=== PATIENT | female | born 1980 | race Hispanic/Latino ===

== ENCOUNTER 2021-11-20 18:26 | Emergency (ER) | payer OTHER, SELFPAY ==
--- OUTSIDE RECORDS SUMMARY | 2021-11-20 18:31 | XMS REPORT | Continuity of Care Document ---
:1980 Author Organization [facility] t Address [address] [place] [id number] Care Team Providers Name Role Phone LEVI NEGRO Attending Clinician Unavailable Problems This patient has no known problems. Allergies, Adverse Reactions, Alerts This patient has no known allergies or adverse reactions. Medications This patient has no known medications. Procedures This patient has no known procedures. Results Test Description Test Time Test Comments Results Result [facility] e Comments CT, ABDOMEN 2018-11-15 Reason for FINAL REPORT PATIENT 18:22:00 exam:->ABDOMINA ID: [id number] L PAINIs the INDICATION:Abdominal patient pain COMPARISON: ?->Unkn None. TECHNIQUE: CT ownWhat is the of the Abdomen and patient's Pelvis WITH sedation intravenous contrast. requirement?->N Enteric contrast was o Sedation not used. The exam was performed according to our department dose-optimization protocol, which includes automated exposure control, adjustments of mA and kV according to patient size. Iterative reconstructions are also sometimes employed. FINDINGS:There is submucosal edema of the transverse colon likely representing infectious colitis. No associated pericolonic fat stranding. Stomach and small bowel are unremarkable. No peritoneal free fluid or free air is demonstrated. Diffuse low-attenuation of the liver parenchyma representing hepatic steatosis. Gallbladder is unremarkable. There is no biliary ductal dilatation. Pancreas, spleen, adrenal glands, kidneys, bladder are unremarkable. Adjacent to the right ovary is a thin-walled unilocular cyst measuring 1.5 cm. This is deemed benign and no imaging follow-up is recommended. Left ovary is unremarkable. Uterus unremarkable. Osseous structures unremarkable. Lower thorax unremarkable. IMPRESSION: Submucosal edema of the transverse colon representing colitis, likely infectious.Hepatic steatosis. Signed: Courtney Fischer MDReport Verified Date/Time: 11/15/2018 18:22:29 Reading Location: [facility] [id number] CT Body Reading Room ALYSIS W/ MICROSCOPIC 2018-11-15 16:39:00 Test Item Value Reference Range Interpretation Comme nts COLOR (BEAKER) (test code = 470) Light Yellow CLARITY (BEAKER) (test code = 469) Clear SPECIFIC GRAVITY UA (BEAKER) (test code = 468) 1.001 1.001-1 .035 PH UA (BEAKER) (test code = 467) 6.5 5.0-8.0 PROTEIN UA (BEAKER) (test code = 464) Negative Negative GLUCOSE UA (BEAKER) (test code = 365) Negative Negative KETONES UA (BEAKER) (test code = 371) Negative Negative BILIRUBIN UA (BEAKER) (test code = 462) Negative Negative BLOOD UA (BEAKER) (test code = 461) Moderate Negative A NITRITE UA (BEAKER) (test code = 465) Negative Negative LEUKOCYTE ESTERASE UA (BEAKER) (test code = 466) Negative Negat josie UROBILINOGEN UA (BEAKER) (test code = 463) 0.2 mg/dL 0.2-1.0 RBC UA (BEAKER) (test code = 519) 5 /HPF WBC UA (BEAKER) (test code = 520) 1 /HPF BACTERIA (BEAKER) (test code = 517) Rare SQUAMOUS EPITHELIAL (BEAKER) (test code = 516) < /HPF SOURCE(BEAKER) (test code = 2795) Urine, Clean Catch SCREEN, [id number] 16:38:00 Test Item Value Reference Range Interpretation Comments TEST URINE (BEAKER) (test Negative code = 583) BASIC METABOLIC [id number] 15:54:00 Test Item Value Reference Range Interpretation Comments SODIUM (BEAKER) 136 meq/L 136-145 (test code = 381) POTASSIUM (BEAKER) 3.4 meq/L 3.5-5.1 L (test code = 379) CHLORIDE (BEAKER) 103 meq/L 98-107 (test code = 382) CO2 (BEAKER) (test 25 meq/L 22-29 code = 355) BLOOD UREA NITROGEN 11 mg/dL 7-21 (BEAKER) (test code = 354) CREATININE (BEAKER) 0.76 mg/dL 0.57-1.25 (test code = 358) GLUCOSE RANDOM 100 mg/dL 70-105 (BEAKER) (test code = 652) CALCIUM (BEAKER) 9.6 mg/dL 8.4-10.2 (test code = 697) EGFR (BEAKER) (test mL/min/1.73 INSUFFIC IENT CLINICAL code = 1092) sq m DATA TO CALCULA TE ESTIMATED GFR. [id number] 15:48:00 Test Item Value Reference Range Interpretation Comments LIPASE (BEAKER) (test code = 749) 25 U/L 8-78 [id number] 15:48:00 Test Item Value Reference Range Interpretation Comments AMYLASE (BEAKER) (test code = 349) 68 U/L 25-125 HEPATIC FUNCTION [id number] 15:48:00 Test Item Value Reference Range Interpretation Comments TOTAL PROTEIN (BEAKER) (test code = 7.9 gm/dL 6.0-8.3 770) ALBUMIN (BEAKER) (test code = 1145) 4.7 g/dL 3.5-5.0 BILIRUBIN TOTAL (BEAKER) (test code 1.1 mg/dL 0.2-1.2 = 377) BILIRUBIN DIRECT (BEAKER) (test 0.3 mg/dL 0.1-0.5 code = 706) ALKALINE PHOSPHATASE (BEAKER) (test 53 U/L 40-150 code = 346) AST (SGOT) (BEAKER) (test code = 21 U/L 5-34 353) ALT (SGPT) (BEAKER) (test code = 14 U/L 6-55 347) [id number] 15:47:00 Test Item Value Reference Range Interpretation Comments PROTIME (BEAKER) (test code = 12.6 seconds 11.7-14.7 759) INR (BEAKER) (test code = 370) 0.9 <=5.9 PARTIAL THROMBOPLASTIN TIME 27.1 seconds 22.5-36.0 (BEAKER) (test code = 760) RECOMMENDED COUMADIN/WARFARIN INR THERAPY RANGESSTANDARD DOSE: 2.0 - 3.0 Includes: PROPHYLAXIS forvenous thrombosis, systemic embolization; TREATMENT for venous thrombosis and/or pulmonary embolus.HIGH RISK: Target INR is 2.5-3.5 for patients with mechanical heart valves.CBC W/PLT COUNT & AUTO DIFFERENTIAL 2018-11-15 15:34:00 Test Item Value Reference Range Interpretation Comments WHITE BLOOD CELL COUNT (BEAKER) 6.4 K/ L 3.5-10.5 (test code = 775) RED BLOOD CELL COUNT (BEAKER) 4.93 M/ L 3.93-5.22 (test code = 761) HEMOGLOBIN (BEAKER) (test code = 13.7 GM/DL 11.2-15.7 410) HEMATOCRIT (BEAKER) (test code = 41.4 % 34.1-44.9 411) MEAN CORPUSCULAR VOLUME (BEAKER) 84.0 fL 79.4-94.8 (test code = 753) MEAN CORPUSCULAR HEMOGLOBIN 27.8 pg 25.6-32.2 (BEAKER) (test code = 751) MEAN CORPUSCULAR HEMOGLOBIN CONC 33.1 GM/DL 32.2-35.5 (BEAKER) (test code = 752) RED CELL DISTRIBUTION WIDTH 14.5 % 11.7-14.4 H (BEAKER) (test code = 412) PLATELET COUNT (BEAKER) (test 228 K/CU MM 150-450 code = 756) MEAN PLATELET VOLUME (BEAKER) 9.7 fL 9.4-12.3 (test code = 754) NUCLEATED RED BLOOD CELLS 0 /100 WBC 0-0 (BEAKER) (test code = 413) NEUTROPHILS RELATIVE PERCENT 68 % (BEAKER) (test code = 429) LYMPHOCYTES RELATIVE PERCENT 25 % (BEAKER) (test code = 430) MONOCYTES RELATIVE PERCENT 5 % (BEAKER) (test code = 431) EOSINOPHILS RELATIVE PERCENT 1 % (BEAKER) (test code = 432) BASOPHILS RELATIVE PERCENT 0 % (BEAKER) (test code = 437) NEUTROPHILS ABSOLUTE COUNT 4.35 K/ L 1.56-6.13 (BEAKER) (test code = 670) LYMPHOCYTES ABSOLUTE COUNT 1.62 K/ L 1.18-3.74 (BEAKER) (test code = 414) MONOCYTES ABSOLUTE COUNT (BEAKER) 0.33 K/ L 0.24-0.36 (test code = 415) EOSINOPHILS ABSOLUTE COUNT 0.06 K/ L 0.04-0.36 (BEAKER) (test code = 416) BASOPHILS ABSOLUTE COUNT (BEAKER) 0.01 K/ L 0.01-0.08 (test code = 417) IMMATURE GRANULOCYTES-RELATIVE 0 % 0-1 PERCENT (RON) (test code = 2801)
[2021-11-20 19:29] LABS: Absolute Lymphocytes (CBC) 1.5 K/uL (0.7-4.9); Hematocrit 39.2 % (36.0-45.0); Lymphocytes % 32.2 % (15.3-44.8); MPV 8.1 fL (7.6-11.3); RBC Red Blood Cell Count 4.59 M/uL (3.86-4.86)
--- NOTE | 2021-11-20 20:29 | RAD REPORT ---
EXAM DESCRIPTION: RAD - Chest Single View - 11/20/2021 8:09 pm CLINICAL HISTORY: SOB COMPARISON: No comparisons FINDINGS: Lines: None. Lungs: No evidence of edema or pneumonia. Pleural: No significant pleural effusions or pneumothorax. Cardiac: The heart size is within normal limits. Bones: No acute fractures. Other: IMPRESSION: No acute cardiopulmonary disease.
[2021-11-20 21:44] LABS: ALT/SGPT 21 U/L (12-78); AST/SGOT 16 U/L (15-37); Albumin 4.1 g/dL (3.4-5.0); Alkaline Phosphatase 60 U/L (45-117); BUN Blood Urea Nitrogen 14 mg/dL (7-18); Bicarbonate 25 mmol/L (21-32); Bilirubin Direct < 0.1 mg/dL (0-0.2); Bilirubin Total 0.3 mg/dL (0.2-1.0); Glucose Level 98 mg/dL (74-106); NT PRO-BNP 46 pg/mL (<125); Protein, Total 7.7 g/dL (6.4-8.2); Sodium Level 138 mmol/L (136-145)
[2021-11-20] MEDS ORDERED: LIDOCAINE VISCOUS 2% SOLN 15 ML UDC ONE (22:06)
[2021-11-20] MEDS ORDERED: MAGNES/ALUMIN/SIMET 30ML UCUP ONE (22:06)
[2021-11-20 22:11] LABS: Magnesium 2.1
--- NOTE | 2021-11-20 22:22 | RAD REPORT ---
EXAM DESCRIPTION: CT - Soft Tissue Neck W/Contr CLINICAL HISTORY: sob, fb sensation COMPARISON: No comparisons TECHNIQUE All CT scans are performed using dose optimization technique as appropriate and may includ e automated exposure control or mA/KV adjustment according to patient size. FINDINGS: Nasopharyngeal tissues are normal in appearance. Fossa Rosenmller are normal. Parapharyngeal fat triangles are symmetric. Tongue base structures are normal. Epiglottis and aryepiglottic folds are normal. Piriform sinuses are well aerated. The vocal cords are normal in appearance. Salivary glands are normal in appearance. Upper lung boyle are clear. Included intracranial contents are unremarkable. IMPRESSION: Negative examination. No foreign body. Widely patent airway.
--- NOTE | 2021-11-20 22:32 | ER ---
Nurse's Notes [facility] Name: Linda Corona Age: 41 yrs Sex: Female : 1980 Arrival Date: 11/20/2021 Time: 18:30 Bed 17 Private MD: Diagnosis: Dyspnea;Dysphagia, unspecified Presentation: 11/20 18:33 Chief complaint: Patient states: she was sent by [facility]. She reports ap3 difficulty swallowing and a hoarse voice, and the clinic wanted her to be further evaluated. Coronavirus screen: At this time, the client does not indicate any symptoms associated with coronavirus-19. Ebola Screen: No symptoms or risks identified at this time. Initial Sepsis Screen: Does the patient meet any 2 criteria? No. Patient's initial sepsis screen is negative. Does the patient have a suspected source of infection? No. Patient's initial sepsis screen is negative. Risk Assessment: Do you want to hurt yourself or someone else? Patient reports no desire to harm self or others. Onset of symptoms was November 20, 2021. 18:33 Method Of Arrival: Ambulatory ap3 18:33 Acuity: HAMZAH 3 ap3 Triage Assessment: 18:36 General: Appears in no apparent distress. comfortable, Behavior is calm, cooperative, ap3 appropriate for age. Pain: Denies pain. EENT: Reports difficulty swallowing. Neuro: Level of Consciousness is awake, alert, obeys commands, Oriented to person, place, time, situation, Appropriate for age Speech is normal. Respiratory: Airway is patent Respiratory effort is even, unlabored, Respiratory pattern is regular, symmetrical. 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 - Social history:: Smoking status: Patient denies any tobacco usage or history of. Screenin:36 Abuse screen: Denies threats or abuse. Nutritional screening: No deficits noted. ap3 Tuberculosis screening: No symptoms or risk factors identified. 18:45 Fall Risk None identified. ab2 Assessment: 18:44 Reassessment:. General: Appears in no apparent distress. comfortable, Behavior is calm, ab2 cooperative, appropriate for age. Pain: Complains of pain in neck Pain does not radiate. Pain currently is 7 out of 10 on a pain scale. Quality of pain is described as burning. Neuro: Level of Consciousness is awake, alert, obeys commands, Oriented to person, place, time, situation, Appropriate for age Flake Or Shred Roll Operator are equal bilaterally Moves all extremities. Gait is steady, Speech is normal, Facial symmetry appears normal. Cardiovascular: No deficits noted. Denies chest pain, Heart tones S1 S2 present. Respiratory: Airway is patent Respiratory effort is even, unlabored, Respiratory pattern is regular, symmetrical, Breath sounds are clear bilaterally. GI: No deficits noted. No signs and/or symptoms were reported involving the gastrointestinal system. : No deficits noted. No signs and/or symptoms were reported regarding the genitourinary system. EENT: Reports pain when swallowing. Derm: No deficits noted. No signs and/or symptoms reported regarding the dermatologic system. Skin is intact, is healthy with good turgor. Musculoskeletal: No deficits noted. No signs and/or symptoms reported regarding the musculoskeletal system. Vital Signs: 18:33 BP 115 / 77; Pulse 71; Resp 18; Temp 98.1(TE); Pulse Ox 100% on R/A; Weight 65.77 kg; ap3 Height 4 ft. 11 in. (149.86 cm); 21:08 BP 121 / 79; Pulse 78; Resp 20; Pulse Ox 100% ; sf1 18:33 Body Mass Index 29.29 (65.77 kg, 149.86 cm) ap3 ED Course: 18:30 Patient arrived in ED. am2 18:35 Triage completed. ap3 18:37 Arm band placed on right wrist. ap3 18:39 Johnny Choi PA is PHCP. jmm 18:39 Carmelina Wagner MD is Attending Physician. [facility] 18:43 Ronald Castillo is Primary Nurse. ab2 18:45 Patient has correct armband on for positive identification. Bed in low position. Call ab2 light in reach. Side rails up X2. 18:45 No provider procedures requiring assistance completed. ab2 19:11 Inserted saline lock: 20 gauge in right antecubital area, using aseptic technique. sf1 Blood collected. 19:12 Basic Metabolic Panel Sent. sf1 19:13 CBC with Diff Sent. sf1 19:13 LFT's Sent. sf1 19:13 Magnesium Sent. sf1 19:13 NT PRO-BNP Sent. sf1 19:13 PT-INR Sent. sf1 19:13 Troponin HS Sent. sf1 19:13 Basic Metabolic Panel Sent. sf1 19:13 D-Dimer Sent. sf1 20:09 XRAY Chest (1 view) In Process Unspecified. EDMS 22:04 CT Soft Tissue Neck W/contr In Process Unspecified. EDMS 22:31 Henrique Troncoso MD is Referral Physician. [facility] 22:50 IV discontinued, intact, bleeding controlled, No redness/swelling at site. Pressure sf1 dressing applied. Administered Medications: 22:18 Drug: GI Cocktail without - (Maalox Suspension 30 ml, Lidocaine Liquid 2 % 15 sf1 ml) Route: PO; Outcome: 22:31 Discharge ordered by MD. [facility] 22:50 Discharged to home ambulatory. sf1 22:50 Condition: good 22:50 Discharge instructions given to patient, Instructed on discharge instructions, follow up and referral plans. Demonstrated understanding of instructions, follow-up care, medications, Prescriptions given X 1. 23:01 Patient left the ED. bb Signatures: Dispatcher [employer] EDMS Johnny Choi PA PA jmm Ballard, Brenda, RN RN Patricia Kamara Amanda, RN RN ap3 Ronald Castillo2 Tanya Schroeder RN RN sf1
--- NOTE | 2021-11-20 22:32 | EDPHYS ---
Physician Documentation [facility] Name: Linda Corona Age: 41 yrs Sex: Female : 1980 Arrival Date: 11/20/2021 Time: 18:30 Bed 17 Private MD: ED Physician Carmelina Wagner HPI: 11/20 19:01 This 41 yrs old Female presents to ER via Ambulatory with complaints of jmm Difficulty Swallowing, hoarse voice. 19:01 The patient presents with sore throat. Onset: The symptoms/episode began/occurred jmm gradually, 7 week(s) ago. Modifying factors: The symptoms are alleviated by nothing, the symptoms are aggravated by swallowing. Associated signs and symptoms: Pertinent positives: shortness of breath. Is a 41-year-old female no known chronic medical conditions presents emerged part with complaints of sore throat and dyspnea beginning approximately 7 weeks ago. Patient denies chest pain but states having some shortness of breath. Patient was sent from the [facility] to the ER due to concerns for foreign body. Patient denies vomiting. Denies fever.. 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 - Social history:: Smoking status: Patient denies any tobacco usage or history of. ROS: 19:01 Constitutional: Negative for fever, chills, and weight loss, Cardiovascular: Negative jmm for chest pain, palpitations, and edema. 19:01 ENT: Positive for sore throat. 19:01 Respiratory: Positive for shortness of breath. 19:01 All other systems are negative. Exam: 19:01 Constitutional: This is a well developed, well nourished patient who is awake, alert, jmm and in no acute distress. Head/Face: atraumatic. Eyes: EOMI, no conjunctival erythema appreciated 19:01 Neck: Trachea midline, Supple Chest/axilla: Normal chest wall appearance and motion. Cardiovascular: Regular rate and rhythm. No edema appreciated Respiratory: Normal respirations, no respiratory distress appreciated Abdomen/GI: Non distended, soft Back: Normal ROM Skin: General appearance color normal MS/ Extremity: Moves all extremities, no obvious deformities appreciated, no edema noted to the lower extremities Neuro: Awake and alert 19:01 ENT: Posterior pharynx: is normal. Vital Signs: 18:33 BP 115 / 77; Pulse 71; Resp 18; Temp 98.1(TE); Pulse Ox 100% on R/A; Weight 65.77 kg; ap3 Height 4 ft. 11 in. (149.86 cm); 21:08 BP 121 / 79; Pulse 78; Resp 20; Pulse Ox 100% ; sf1 18:33 Body Mass Index 29.29 (65.77 kg, 149.86 cm) ap3 MDM: 19:01 Patient medically screened. [facility] 22:30 Data reviewed: vital signs, nurses notes. Counseling: I had a detailed discussion with ruth the patient and/or guardian regarding: the historical points, exam findings, and any diagnostic results supporting the discharge/admit diagnosis, lab results, radiology results, the need for outpatient follow up, to return to the emergency department if symptoms worsen or persist or if there are any questions or concerns that arise at home. ED course: Patient is alert and nontoxic in appearance in the ED. Imaging studies are negative. Patient advised to follow with GI for further evaluation. Patient otherwise given strict return precautions. Patient understood agrees plan of care.. 11/20 19:02 Order name: Basic Metabolic Panel [facility] 11/20 19:02 Order name: CBC with Diff; Complete Time: 20:22 [facility] 11/20 19:02 Order name: LFT's; Complete Time: 22:14 [facility] 11/20 19:02 Order name: Magnesium; Complete Time: 22:14 [facility] 11/20 19:02 Order name: NT PRO-BNP; Complete Time: 22:14 [facility] 11/20 19:02 Order name: PT-INR; Complete Time: 20:22 [facility] 11/20 19:02 Order name: Troponin HS; Complete Time: 22:14 [facility] 11/20 19:02 Order name: XRAY Chest (1 view); Complete Time: 20:31 [facility] 11/20 19:02 Order name: EKG; Complete Time: 19:03 [facility] 11/20 19:02 Order name: Cardiac monitoring; Complete Time: 19:12 [facility] 11/20 19:02 Order name: D-Dimer; Complete Time: 20:22 [facility] 11/20 19:03 Order name: Basic Metabolic Panel; Complete Time: 22:14 [facility] 11/20 20:22 Order name: CT Soft Tissue Neck W/contr; Complete Time: 22:28 [facility] 11/20 19:02 Order name: EKG - Nurse/Tech; Complete Time: 19:15 [facility] 11/20 19:02 Order name: IV Saline Lock; Complete Time: 19:11 [facility] 11/20 19:02 Order name: Labs collected and sent; Complete Time: 19:12 [facility] 11/20 19:02 Order name: O2 Per Protocol; Complete Time: 19:13 [facility] 11/20 19:02 Order name: O2 Sat Monitoring; Complete Time: 19:13 [facility] Administered Medications: 22:18 Drug: GI Cocktail without - (Maalox Suspension 30 ml, Lidocaine Liquid 2 % 15 sf1 ml) Route: PO; Disposition: 11/21 12:55 Co-signature as Attending Physician, Carmelina Wagner MD I agree with the assessment and sp3 plan of care. Disposition Summary: 11/20/21 22:31 Discharge Ordered Location: Home [facility] Condition: Stable [facility] Diagnosis - Dyspnea jmm - Dysphagia, unspecified jmm Followup: [facility] - With: Henrique Troncoso MD - When: 2 - 3 days - Reason: Recheck today's complaints, Continuance of care, Re-evaluation by your physician Discharge Instructions: - Discharge Summary Sheet [facility] - Dysphagia jm - Shortness of Breath, Adult [facility] Forms: - Medication Reconciliation Form [facility] - Thank You Letter [facility] - Antibiotic Education [facility] - Prescription Opioid Use [facility] Prescriptions: - omeprazole 40 mg Oral capsule,delayed release(DR/EC) - take 1 capsule by ORAL route once daily before a meal; 30 capsule; Refills: 0, [facility] Product Selection Permitted Signatures: Dispatcher [employer] EDJohnny Esquivel PA PA jmm Prokisch, Amanda, RN RN ap3 Carmelina Wagner MD MD sp3 Tanya Schroeder RN RN sf1
[2021-11-20 23:07] VITALS: TEMP 98.1; O2SAT 100
[2021-11-20 23:09] VITALS: BP 121/79
== END 2021-11-20 23:01 | disposition home or self-care (01) ==
LOC: ER 18:26
DX: R13.10 Dysphagia, unspecified (principal); R06.00 Dyspnea, unspecified; Z88.0 Allergy status to penicillin
CPT/HCPCS: 36415; 70491; 71045; 80048; 80076; 83735; 83880; 84484; 85025; 85379; 85610; 93005; 99284; Q9967

== ENCOUNTER → 2023-10-09 | Emergency (ER) | payer SELFPAY ==
[~2023-10-09] MED LIST: MORPHINE 4 MG/ML SYR ONE; NA CHLORIDE 0.9% 1,000 ML ONE; ONDANSETRON 4 MG/2 ML VIAL ONE
[2023-10-09 16:51] LABS: Absolute Lymphocytes (CBC) 1.4 K/uL (0.7-4.9); Hematocrit 39.1 % (36.0-45.0); Lymphocytes % 17.2 % (15.3-44.8); MCV 86.3 fL (80-100); MPV 7.6 fL (7.6-11.3); Platelets 244 thou/uL (152-406); RBC Red Blood Cell Count 4.54 M/uL (3.86-4.86)
--- NOTE | 2023-10-09 17:26 | RAD REPORT ---
EXAM DESCRIPTION: US - Transvaginal OB - 10/09/2023 5:10 pm CLINICAL HISTORY: with pelvic pain COMPARISON: None. FINDINGS: The uterus is retroverted and measures 9 x 5 x 6 centimeters. Small amount of fluid is pr esent within the endometrium. A gestational sac is not seen. Two fibroids. The largest 3 centimeters Left ovary normal size and echotexture. Right ovary not seen secondary to overlying bowel gas The right and left adnexa unremarkable No significant free fluid IMPRESSION: Nonvisualization of a gestational sac within the endometrium. Small amount of fluid with in the endometrium These findings could represent an early intrauterine in which the gestational sac is not se en. and even an ectopic can also result in this appearance. This all should be cor related clinically and with serial beta HCG levels. Followup endovaginal sonogram in 1 week recommend ed
[2023-10-09 17:37] LABS: Potassium 3.7 mEq/L (3.5-5.1)
--- NOTE | 2023-10-09 19:00 | ER ---
Nurse's Notes [facility] Name: Linda Corona Age: 43 yrs Sex: Female : 1980 Arrival Date: 10/09/2023 Time: 15:26 Bed 14 Private MD: Diagnosis: Complete or unspecified spontaneous without complication Presentation: 10/09 16:18 Chief complaint: Patient states: VAGINAL BLEEDING x2 HR, 10 WK PREG. Coronavirus bp screen: At this time, the client does not indicate any symptoms associated with coronavirus-19. Ebola Screen: No symptoms or risks identified at this time. Initial Sepsis Screen: Does the patient meet any 2 criteria? No. Patient's initial sepsis screen is negative. Does the patient have a suspected source of infection? No. Patient's initial sepsis screen is negative. Risk Assessment: Do you want to hurt yourself or someone else? Patient reports no desire to harm self or others. Onset of symptoms was October 09, 2023 at 14:00. 16:18 Method Of Arrival: Wheelchair bp 16:18 Acuity: HAMZAH 3 bp Triage Assessment: 16:19 General: Appears distressed, Behavior is cooperative, appropriate for age, anxious. bp Pain: Complains of pain in pelvis. : Vaginal discharge is brian blood. 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 - Social history:: Smoking status: Patient denies any tobacco usage or history of. Screenin:30 [facility] ED Fall Risk Assessment (Adult) History of falling in the last 3 months, ko1 including since admission No falls in past 3 months (0 pts) Confusion or Disorientation No (0 pts) Intoxicated or Sedated No (0 pts) Impaired Gait No (0 pts) Mobility Assist Device Used No (0 pt) Altered Elimination No (0 pt) Score/Fall Risk Level 0 - 2 = Low Risk Oriented to surroundings, Maintained a safe environment, Educated pt \T\ family on fall prevention, incl call for assistance when getting out of bed, Assessed \T\ reinforced patient's understanding of fall precautions, Provided non-skid footwear, Hourly rounding (assess needs \T\ fall precautionary measures) done, Used ambulatory aids as needed (educated on \T\ assisted with), Used gait belt as appropriate. Abuse screen: Denies threats or abuse. Denies injuries from another. Nutritional screening: No deficits noted. Tuberculosis screening: No symptoms or risk factors identified. Assessment: 16:30 Obstetrical Assessment: Patient reports abdominal cramping, Abdominal pain. ko1 19:20 General: Appears in no apparent distress. comfortable, well groomed, well developed, pf1 Behavior is calm, cooperative, appropriate for age, quiet. Pain: Complains of pain in pelvis Pain currently is 6 out of 10 on a pain scale. Neuro: No deficits noted. Level of Consciousness is awake, alert, obeys commands, Oriented to person, place, time, situation. Cardiovascular: No deficits noted. Capillary refill < 3 seconds Patient's skin is warm and dry. Respiratory: No deficits noted. Airway is patent Respiratory effort is even, unlabored, Respiratory pattern is regular, symmetrical. GI: No deficits noted. No signs and/or symptoms were reported involving the gastrointestinal system. : Reports vaginal bleeding that is. Vital Signs: 16:18 BP 116 / 71; Pulse 94; Resp 18; Temp 98; Pulse Ox 100% ; Weight 56.7 kg; bp 18:00 BP 117 / 78; Pulse 64; Resp 16; Pulse Ox 100% ; ko1 19:22 BP 103 / 77; Pulse 67; Resp 16; Pulse Ox 100% on R/A; Pain 6/10; pf1 19:22 Pain Scale: Adult pf1 ED Course: 15:31 Patient arrived in ED. ae5 15:59 Marta Baez FNP is PHCP. jh7 15:59 Enmanuel Martínez MD is Attending Physician. jh7 16:19 Triage completed. bp 16:19 Arm band placed on. bp 16:30 Patient has correct armband on for positive identification. Placed in gown. Bed in low ko1 position. Call light in reach. Side rails up X 1. Pulse ox on. NIBP on. Door closed. Noise minimized. Lights dimmed. Warm blanket given. 16:31 Rosemarie Ventura RN is Primary Nurse. ko1 16:40 Abo/rh Typing Sent. ko1 16:40 Basic Metabolic Panel Sent. ko1 16:40 CBC with Diff Sent. ko1 16:40 Quantitative Hcg Sent. ko1 16:41 Inserted saline lock: 22 gauge in right antecubital area, using aseptic technique. ds4 Blood collected. 17:12 US Transvaginal Ob In Process Unspecified. EDMS 19:22 IV discontinued, intact, bleeding controlled, No redness/swelling at site. Pressure pf1 dressing applied. Administered Medications: 16:53 Drug: NS 0.9% IV 1000 ml IV at 1 bolus Per protocol; 1000 mL bolus Route: IV; Rate: 1 ko1 bolus; Site: right antecubital; 19:22 Follow up: Response: No adverse reaction; IV Status: Completed infusion; IV Intake: pf1 500ml 16:53 Drug: Ondansetron IVP 4 mg IVP once; over 2 minutes Route: IVP; Site: right antecubital;ko1 19:22 Follow up: Response: No adverse reaction pf1 17:05 Drug: morphine IVP or IV 4 mg IVP once over 4 mins Route: IVP; Infused Over: 4 mins; ko1 Site: right antecubital; 19:22 Follow up: Response: No adverse reaction; Marked relief of symptoms; Pain is decreased; pf1 RASS: Alert and Calm (0) Intake: 19:22 IV: 500ml; Total: 500ml. pf1 Outcome: 18:59 Discharge ordered by MD. viera 19:34 Patient left the ED. pf1 Signatures: Dispatcher [employer] EDMS Philippe Alexandra ds4 Albaro Orozco RN RN bp Hadash, Jennifer, TAG MARKER TAG MARKER 7 Rosemarie Ventura RN RN ko1 Jayla Harley RN RN pf1 Rupali Helms ae5
--- NOTE | 2023-10-09 19:00 | EDPHYS ---
Physician Documentation [facility] Name: Linda Corona Age: 43 yrs Sex: Female : 1980 Arrival Date: 10/09/2023 Time: 15:26 Bed 14 Private MD: ED Physician Enmanuel Martínez HPI: 10/09 16:18 This 43 yrs old Female presents to ER via Wheelchair with complaints of jh7 Vaginal Bleeding, + Preg <12wks. 16:18 The patient presents to the emergency department with vaginal bleeding, that is heavy, jh7 with clots. The estimated gestational age is 11 weeks. 43-year-old female presents to the ER for vaginal bleeding with possible miscarriage. The patient reports that she is currently 10 weeks and developed heavy vaginal bleeding and abdominal cramping since this morning. No other medical problems.. 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 - Social history:: Smoking status: Patient denies any tobacco usage or history of. ROS: 16:18 Constitutional: Negative for fever, chills, and weight loss, Eyes: Negative for injury, jh7 pain, redness, and discharge, Neck: Negative for injury, pain, and swelling, Cardiovascular: Negative for chest pain, palpitations, and edema, Respiratory: Negative for shortness of breath, cough, wheezing, and pleuritic chest pain, Back: Negative for injury and pain, MS/Extremity: Negative for injury and deformity, Skin: Negative for injury, rash, and discoloration, Neuro: Negative for headache, weakness, numbness, tingling, and seizure, 16:18 Abdomen/GI: Positive for abdominal cramps, Negative for nausea, vomiting, and diarrhea, 16:18 : Positive for vaginal bleeding, Negative for urinary symptoms, 16:18 All other systems are negative, Exam: 16:18 Constitutional: This is a well developed, well nourished patient who is awake, alert, jh7 and in no acute distress. Head/Face: Normocephalic, atraumatic. Eyes: Pupils equal round and reactive to light, extra-ocular motions intact. Lids and lashes normal. Conjunctiva and sclera are non-icteric and not injected. Cornea within normal limits. Periorbital areas with no swelling, redness, or edema. Neck: Trachea midline, no thyromegaly or masses palpated, and no cervical lymphadenopathy. Supple, full range of motion without nuchal rigidity, or vertebral point tenderness. No Meningismus. Cardiovascular: Regular rate and rhythm with a normal S1 and S2. No gallops, murmurs, or rubs. Normal PMI, no JVD. No pulse deficits. Respiratory: Lungs have equal breath sounds bilaterally, clear to auscultation and percussion. No rales, rhonchi or wheezes noted. No increased work of breathing, no retractions or nasal flaring. Abdomen/GI: Soft, non-tender, with normal bowel sounds. No distension or tympany. No guarding or rebound. No evidence of tenderness throughout. Back: No spinal tenderness. No costovertebral tenderness. Full range of motion. Skin: Warm, dry with normal turgor. Normal color with no rashes, no lesions, and no evidence of cellulitis. MS/ Extremity: Pulses equal, no cyanosis. Neurovascular intact. Full, normal range of motion. Neuro: Awake and alert, GCS 15, oriented to person, place, time, and situation. Motor strength 5/5 in all extremities. Sensory grossly intact. Normal gait. 16:18 : Pelvic Exam: External exam: Patient passed multiple large blood clots both before and after ultrasound., Vital Signs: 16:18 BP 116 / 71; Pulse 94; Resp 18; Temp 98; Pulse Ox 100% ; Weight 56.7 kg; bp 18:00 BP 117 / 78; Pulse 64; Resp 16; Pulse Ox 100% ; ko1 19:22 BP 103 / 77; Pulse 67; Resp 16; Pulse Ox 100% on R/A; Pain 6/10; pf1 19:22 Pain Scale: Adult pf1 MDM: 16:08 Patient medically screened. [facility] 18:12 Differential diagnosis: threatened Ab, inevitable Ab, complete Ab. Data reviewed: vital [facility] signs, nurses notes, lab test result(s), radiologic studies, ultrasound. I considered the following discharge prescriptions or medication management in the emergency department Medications were administered in the Emergency Department. See MAR. Counseling: I had a detailed discussion with the patient and/or guardian regarding the historical points, exam findings, and any diagnostic results supporting the discharge/admit diagnosis, the need for outpatient follow up, an OB/Gyne specialist, to return to the emergency department if symptoms worsen or persist or if there are any questions or concerns that arise at home. Response to treatment: the patient's symptoms have mildly improved after treatment. ED course: Discussed ultrasound results. Informed the patient that she and should expect vaginal bleeding for the next few days. If she develops a fever, severe pain, nausea/vomiting, or any new concerning symptoms, she may return to the ER for further eval. The patient understood the plan of care.. 10/09 16:12 Order name: Abo/rh Typing; Complete Time: 17:30 [facility] 10/09 16:12 Order name: Basic Metabolic Panel; Complete Time: 18:09 [facility] 10/09 16:12 Order name: CBC with Diff; Complete Time: 16:59 [facility] 10/09 16:12 Order name: Test, Urine [facility] 10/09 16:12 Order name: Quantitative Hcg; Complete Time: 18:09 [facility] 10/09 16:12 Order name: Urinalysis w/ reflexes [facility] 10/09 16:12 Order name: US Transvaginal Ob; Complete Time: 17:30 [facility] 10/09 16:12 Order name: IV Saline Lock; Complete Time: 16:40 [facility] 10/09 16:12 Order name: Labs collected and sent; Complete Time: 16:40 [facility] 10/09 16:12 Order name: NPO; Complete Time: 16:31 [facility] Administered Medications: 16:53 Drug: NS 0.9% IV 1000 ml IV at 1 bolus Per protocol; 1000 mL bolus Route: IV; Rate: 1 ko1 bolus; Site: right antecubital; 19:22 Follow up: Response: No adverse reaction; IV Status: Completed infusion; IV Intake: pf1 500ml 16:53 Drug: Ondansetron IVP 4 mg IVP once; over 2 minutes Route: IVP; Site: right antecubital;ko1 19:22 Follow up: Response: No adverse reaction pf1 17:05 Drug: morphine IVP or IV 4 mg IVP once over 4 mins Route: IVP; Infused Over: 4 mins; ko1 Site: right antecubital; 19:22 Follow up: Response: No adverse reaction; Marked relief of symptoms; Pain is decreased; pf1 RASS: Alert and Calm (0) Disposition: 10/10 06:58 Co-signature as Attending Physician, Enmanuel Martínez MD I reviewed the patient's care rn provided by the Advanced Practice Provider and agree with the diagnosis and treatment plan. Disposition Summary: 10/09/23 18:59 Discharge Ordered Notes: Location: Home [facility] Problem: new [facility] Symptoms: are unchanged [facility] Condition: Stable [facility] Diagnosis - Complete or unspecified spontaneous without complication [facility] Followup: [facility] - With: Private Physician - When: 1 week - Reason: Re-evaluation by your physician Discharge Instructions: - Discharge Summary Sheet [facility] - Miscarriage [facility] - How to Care for Yourself After Loss and Vaginal Delivery [facility] - Managing Loss [facility] Forms: - Medication Reconciliation Form [facility] - Thank You Letter [facility] - Patient Portal Instructions [facility] - Leadership Thank You Letter [facility] Signatures: Dispatcher [employer] EDEnmanuel Floyd MD MD rn Peltier, Brian, RN RN Marta Guerra FNP FNP [facility] Rosemarie Ventura RN RN ko1 Jayla Harley RN pf1
[2023-10-09 19:59] VITALS: TEMP 98; O2SAT 100
[2023-10-09 20:06] VITALS: BP 103/77
== END ==
LOC: ER 15:26
DX: O03.9 Complete or unspecified spontaneous abortion without complication (principal)
CPT/HCPCS: 36415; 76817; 80048; 84702; 85025; 86900; 86901; 96361; 96374; 96375; 99284; J2405; J7030